=== PATIENT | female | born 1955 | race Caucasian/White ===

== ENCOUNTER 2018-03-26 11:04 | Emergency (ER) | payer MEDICAID ==
[2018-03-26 11:49] VITALS: BP 157/79
[2018-03-26] MEDS ORDERED: Alum Hydrox/Mag Hydrox/Simeth 15 ML, Lidocaine 2% 15 ML PO ONE ×2 (12:27)
--- NOTE | 2018-03-26 12:32 | EDM.PDOC ---
ED HPI GENERAL MEDICAL PROBLEM - General Chief Complaint: Abdominal Pain Stated Complaint: ABDOMINAL PAIN, DAY 5 Time Seen by Provider: 03/26/18 12:15 Source of Information: Reports: Patient, Old Records, RN History Limitations: Reports: No Limitations - History of Present Illness INITIAL COMMENTS - FREE TEXT/NARRATIVE: 62 yo female here with epigastric pain for about 5 days not getting worse. Went to the clinic today and was sent to the ER. Has early satiety with eating, no nausea or vomiting. Is s/p choly. Onset: Gradual Onset Date: 03/28/18 Duration: Day(s): (5), Constant Location: Reports: Abdomen (epigastric) Quality: Reports: Dull Severity: Moderate Improves with: Reports: None Worsens with: Reports: Eating Context: Reports: Other (unknown, has her gallbladder already out.) Associated Symptoms: Reports: Other (early satiety). 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: Musculoskeletal History: Reports: Arthritis, Back Pain, Chronic, Fibromyalgia Oncologic (Cancer) History: Reports: Malignant Melanoma Other Oncologic History: Removed on back 2016- - Past Surgical History GI Surgical History: Reports: Cholecystectomy, Colonoscopy, EGD Other Oncologic Surgeries/Procedures: - Social & Family History - Tobacco Use Smoking Status *Q: Never Smoker Second Hand Smoke Exposure: No - Caffeine Use Caffeine Use: Reports: Coffee - Recreational Drug Use Recreational Drug Use: No ED ROS GENERAL - Review of Systems Review Of Systems: See Below Constitutional: Reports: No Symptoms HEENT: Reports: No Symptoms Respiratory: Reports: No Symptoms Cardiovascular: Reports: No Symptoms Endocrine: Reports: No Symptoms GI/Abdominal: Reports: Abdominal Pain (epigastric) : Reports: No Symptoms Musculoskeletal: Reports: No Symptoms Skin: Reports: No Symptoms Neurological: Reports: No Symptoms ED EXAM, GI/ABD - Physical Exam Exam: See Below Exam Limited By: No Limitations General Appearance: Alert, WD/WN, No Apparent Distress Eyes: Bilateral: Normal Appearance, EOMI Ears: Normal External Exam, Normal Canal, Hearing Grossly Normal Nose: Normal Inspection, Normal Mucosa, No Blood Throat/Mouth: Normal Inspection, Normal Lips, Normal Oropharynx, Normal Voice, No Airway Compromise Head: Atraumatic, Normocephalic Neck: Normal Inspection Respiratory/Chest: No Respiratory Distress, Lungs Clear, Normal Breath Sounds, No Accessory Muscle Use GI/Abdominal Exam: Normal Bowel Sounds, Soft, No Distention, Tender (mild in epigastrium). No: Non-Tender Back Exam: Normal Inspection. No: CVA Tenderness (R), CVA Tenderness (L) Extremities: Normal Inspection, Normal Range of Motion, Non-Tender, No Pedal Edema Neurological: Alert, Oriented, CN II-XII Intact, Normal Cognition, No Motor/ Sensory Deficits Psychiatric: Normal Affect, Normal Mood Skin Exam: Warm, Dry, Intact, Normal Color, No Rash Lymphatic: No Adenopathy Course - Vital Signs Last Recorded V/S: Last Vital Signs Temp 36.0 C 03/26/18 12:06 Pulse 74 03/26/18 12:06 Resp 15 03/26/18 12:06 BP 157/79 H 03/26/18 12:06 Pulse Ox 100 03/26/18 12:06 - Orders/Labs/Meds Orders: Active Orders 24 hr Category Date Time Status H. PYLORI STOOL AG, EIA Routine Lab 03/26/18 13:47 Received Labs: Laboratory Tests 03/26/18 03/26/18 Range/Units 12:34 12:34 WBC 4.2 L (4.5-11.0) K/uL RBC 3.38 (3.30-5.50) M/uL Hgb 11.5 L (12.0-15.0) g/dL Hct 34.3 L (36.0-48.0) % MCV 102 H (80-98) fL MCH 34 H (27-31) pg MCHC 34 (32-36) % Plt Count 203 (150-400) K/uL Sodium 145 (140-148) mmol/L Potassium 3.4 L (3.6-5.2) mmol/L Chloride 106 (100-108) mmol/L Carbon Dioxide 30 (21-32) mmol/L Anion Gap 12.4 (5.0-14.0) mmol/L BUN 13 (7-18) mg/dL Creatinine 0.8 (0.6-1.0) mg/dL Est Cr Clr Drug Dosing 66.45 mL/min Estimated GFR (MDRD) > 60 (>60) Glucose 94 (74-106) mg/dL Calcium 9.0 (8.5-10.1) mg/dL Lipase 113 (73-393) U/L Meds: Medications Discontinued Medications Generic Name Dose Route Start Last Admin Trade Name Peewee PRN Reason Stop Dose Admin Acetaminophen 1,000 mg 03/26/18 13:14 03/26/18 13:33 Tylenol Extra Strength PO 03/26/18 13:15 1,000 mg ONETIME ONE Administration Al Hydroxide/Mg Hydroxide 15 0 ml 03/26/18 12:27 03/26/18 12:46 ml/ Lidocaine HCl 15 ml PO 03/26/18 12:28 15 ml ONETIME ONE Administration Famotidine 40 mg 03/26/18 13:14 03/26/18 13:32 Pepcid PO 03/26/18 13:15 40 mg ONETIME ONE Administration Departure - Departure Time of Disposition: 13:56 Disposition: Home, Self-Care 01 Condition: Good Clinical Impression: Epigastric abdominal pain - Discharge Information Referrals: Carmen Lacy MD [Primary Care Provider] - Forms: ED Department Discharge - My Orders Last 24 Hours: My Active Orders 03/26/18 13:47 H. PYLORI STOOL AG, EIA Routine - Assessment/Plan Last 24 Hours: My Active Orders 03/26/18 13:47 H. PYLORI STOOL AG, EIA Routine
[2018-03-26] MEDS ORDERED: Famotidine 20 MG Tab PO ONE (13:14)
[2018-03-26] MEDS ORDERED: Acetaminophen 500 MG Tab PO ONE (13:14)
== END 2018-03-26 14:44 | disposition home or self-care (01) ==
LOC: JP.ED 11:04
DX: R10.13 Epigastric pain (principal); Z88.0 Allergy status to penicillin; Z88.8 Allergy status to other drugs, medicaments and biological substances; Z79.899 Other long term (current) drug therapy
CPT/HCPCS: 36415; 80048; 83690; 85027; 87338; 99284; A9270

== ENCOUNTER 2019-01-02 11:50 | Outpatient (CLI) | payer MEDICAID ==
[~2019-01-02 11:50] MED LIST: Bupivacaine 0.5% 30 ML SDV ONE
[2019-01-02 12:19] VITALS: BP 128/82; PULSE 69
--- NOTE | 2019-01-02 20:44 | ANES ---
DATE OF SERVICE: 01/02/2019 PAIN CLINIC NOTE INDICATION: Jason is a 63-year-old female patient referred to us by Dr. Marquez for trigger point injections. Jason has had them several times in the past and is well aware of the risks and the benefits and wishes to proceed with trigger point injections today. Please refer to the doctor's notes for ICD-10 code and diagnosis. TECHNIQUE: The patient was then sat at the edge of the bed. She was wanting me to focus on her lower back lumbar region. Alcohol was used to clean that area. I was able to easily identify approximately 17 to 18 trigger points across her lower back lumbar region. 1 to 2 mL of 0.5% Sensorcaine were injected into those areas. More than 3 muscle groups were injected today. The patient tolerated the procedure without difficulty. Please refer to the nurse's notes for vital signs. After the appropriate amount of time, the patient will be discharged per ACU protocol. Seymour Trejo CRNA /[id number]
== END 2019-01-02 12:40 | disposition home or self-care (01) ==
LOC: JP.PAIN 11:50
PROVIDERS: ATTEND Family Medicine
DX: M79.10 Myalgia, unspecified site (principal)
CPT/HCPCS: 20553; J3490

== ENCOUNTER 2019-01-30 10:43 | Outpatient (CLI) | payer MEDICAID ==
[2019-01-30] MEDS ORDERED: methylPREDNISolone Acetate 40 MG/ML SDV ONE (11:04)
[2019-01-30] MEDS ORDERED: Bupivacaine 0.25% 10 ML SDV ONE (11:04)
[2019-01-30] MEDS ORDERED: Bupivacaine 0.5% 30 ML SDV ONE (11:04)
[2019-01-30 11:27] VITALS: BP 136/77; PULSE 68
--- NOTE | 2019-01-30 12:01 | ANES ---
DATE OF SERVICE: 01/30/2019 INDICATION: Jason is a 63-year-old female patient referred to us by Dr. Marquez for epidural steroid injection and trigger point injections today. She has had both several times in the past, is well aware of the risks and the benefits of both procedures and wishes to proceed with the LU and trigger points today. Please refer to the doctor's notes for ICD-10 code and diagnosis. TECHNIQUE: The patient was then sat at the edge of the bed. Betadine prep x3 to the lumbar region was done. Sterile drape was placed. 1% lidocaine skin wheal and deep was done. A 17-gauge Tuohy needle was inserted at approximately the L5-S1 position. Loss of resistance was achieved. Negative paresthesia, negative heme, and negative CSF were noted. I then proceeded to give the patient 7 mL of sterile normal saline with 2 mL of 0.25% Sensorcaine and 1 mL of 40 mg Depo-Medrol. The Tuohy needle was then flushed and withdrawn. Sterile drape was taken down. Betadine was cleaned off her back and a Band-Aid was applied to the puncture site for hemostasis. The patient tolerated that procedure without difficulty. I then turned my attention to trigger points. She was wanting me to focus on her lower back lumbar region. Alcohol was used to clean that area. I was able to easily identify approximately 17 to 18 trigger points across her lower back lumbar region. 1 to 2 mL of 0.5% Sensorcaine was injected into those areas. More than 3 muscle groups were injected today. The patient tolerated that procedure also without difficulty. Please refer to the nurse's notes for vital signs. After appropriate amount of time, patient will be discharged per ACU protocol. Seymour Trejo CRNA /[id number]
== END 2019-01-30 11:28 | disposition home or self-care (01) ==
LOC: JP.PAIN 10:43
PROVIDERS: ATTEND Family Medicine
DX: M54.17 Radiculopathy, lumbosacral region (principal); M54.5 Low back pain; M53.2X7 Spinal instabilities, lumbosacral region; M12.9 Arthropathy, unspecified; M25.511 Pain in right shoulder; M25.512 Pain in left shoulder
CPT/HCPCS: 20553; 62322; J1030; J3490

== ENCOUNTER 2019-03-13 09:35 | Outpatient (CLI) | payer MEDICAID ==
[2019-03-13] MEDS ORDERED: Bupivacaine 0.5% 30 ML SDV ONE (09:46)
[2019-03-13 10:37] VITALS: BP 150/82; PULSE 74
--- NOTE | 2019-03-13 17:58 | ANES ---
DATE OF SERVICE: 03/13/2019 INDICATION: Jason is a 63-year-old female patient referred to us by Dr. Marquez for trigger point injections today. She was wanting me to focus on her lower back lumbar region. She has had them several times in the past, is well aware of the risks and benefits related to this procedure. She was having some more pain in her lower back than normal, kind of shooting down her leg, that she did say does get worse going up steps. I palpated her SI joints, which were tender. So, I did recommend her getting an order for SI joint injections to be done sometime here to see if that will help relieve some of the new-onset pain she had at the end of last week. Please refer to the doctor's notes for ICD-10 code and diagnosis. TECHNIQUE: The patient then was sat at the edge of the bed. Like I said previously, she was wanting me to focus on her lower back lumbar region. Alcohol was used to clean that area. I was able to easily identify approximately 18 to 19 trigger points across her lower back lumbar region. 1 to 2 mL of 0.5% Sensorcaine was injected into those areas. More than 3 muscle groups were injected today. The patient tolerated the procedure without difficulty. Please refer to the nurse's notes for vital signs. After the appropriate amount of time, the patient will be discharged per ACU protocol. Seymour Trejo CRNA /[id number]
== END 2019-03-13 10:39 | disposition home or self-care (01) ==
LOC: JP.PAIN 09:35
PROVIDERS: ATTEND Family Medicine
DX: M54.40 Lumbago with sciatica, unspecified side (principal); G89.29 Other chronic pain
CPT/HCPCS: 20553; J3490

== ENCOUNTER → 2020-07-08 | Day surgery (SDC) | payer MEDICAID ==
[~2020-07-08] MED LIST changes: +Lactated Ringers 1,000 ML IV SCH; +Midazolam 1 MG/ML 2 ML SDV ONE; +Nozin Nasal Sanitizer NASBOTH ONE; +Propofol 200 MG/20 ML SDV ONE; +ceFAZolin 2 GM in Premix Bag 1 BAG IV ONE; +fentaNYL 100 MCG/2 ML SDV ONE
[2020-07-08 11:21] VITALS: BP 115/76; PULSE 76
--- NOTE | 2020-07-15 14:37 | OR ---
DATE OF PROCEDURE: 07/08/2020 SURGEON: Caesar Castaneda MD PREOPERATIVE DIAGNOSIS: Impingement left shoulder, possible rotator cuff tear. POSTOPERATIVE DIAGNOSES: 1. Impingement, left shoulder. 2. Severe partial-thickness tear rotator cuff. 3. Osteoarthritis with articular cartilage defect, humeral head. PROCEDURE: 1. Arthroscopy left shoulder with chondroplasty of humeral head. 2. Subacromial decompression with acromioplasty. 3. Rotator cuff repair. ANESTHESIA: Interscalene block with sedation. INDICATIONS: Jason is a 64-year-old female with a history of chronic left shoulder pain. She has gone through multiple courses of anti-inflammatories, physical therapy, and injections with temporary improvement. Examination and imaging are consistent with impingement and at least a severe partial-thickness tear and possible small full-thickness tear of the rotator cuff. She now presents for arthroscopy of the shoulder with decompression and repair of rotator cuff as necessary. Risks, benefits, potential complications of the procedure were discussed. DESCRIPTION OF PROCEDURE: After adequate anesthesia was obtained, the patient was placed in a lateral decubitus position and secured with a byrne bag positioner. Left shoulder and arm were prepped and draped in a sterile fashion and 10 pounds of traction was placed in a shoulder traction unit. Posterior portal was established and the glenohumeral joint was inspected. This revealed intact articular cartilage on the glenoid. The humeral head, however, had grade 3 and 4 changes in the central portion with significant fissuring and loose articular fragments. Some very minor degenerative changes were noted on the labrum. Biceps tendon was intact as was the subscapularis. Undersurface of the rotator cuff showed some thinning, but no full-thickness tear. Anterior portal was established and the shaver was used to perform a chondroplasty of the humeral head, moving back and forth between the anterior and posterior portals with a shaver. The scope was then withdrawn and placed into the subacromial space. Moderate amount of chronic bursitis was present. Using a combination of the shaver and the Serfas ablation radiofrequency wand, soft tissues were cleared for visualization. This revealed significant fraying of the bursal side of the rotator cuff, particularly the supraspinatus. Coracoacromial ligament was taken off the anterior edge of the acromion with the ablation wand. Anterolateral portion of the acromion was delineated and a fitz was then introduced, performing an acromioplasty, bevelling the acromion medially and posteriorly, removing approximately 4.5 mm. Rotator cuff was further inspected and this revealed significant fraying without full-thickness tear, but the area of damaged tendon consisted of easily 75% of the thickness of the tendon. Frayed portion was debrided using a combination of the shaver and the wand. An 11 blade was placed through the lateral portal and used to complete the tear. Shaver and fitz were then used to lightly decorticate the superior surface of the tuberosity. A single Mitek Healix anchor was then placed into the footprint. Both limbs of the anchor sutures were brought up through the tendon in a mattress fashion incorporating the damaged portion of the tendon. These were then tied arthroscopically and the repair was evaluated. This showed good repair with approximation to the tuberosity and no lateral row anchor was utilized. Level of the acromioplasty was evaluated and found to be adequate. No other abnormalities were identified. Scope was withdrawn. Port sites were closed in a standard fashion. Sterile dressing was applied. The patient tolerated the procedure well. There were no complications. She was taken from the operating room in stable condition. Caesar Castaneda MD /[id number]
== END ==
LOC: JP.SDS 05:15
PROVIDERS: ATTEND Specialist
DX: M75.112 Incomplete rotator cuff tear or rupture of left shoulder, not specified as traumatic (principal); M19.012 Primary osteoarthritis, left shoulder; M75.42 Impingement syndrome of left shoulder; E78.5 Hyperlipidemia, unspecified; Z88.0 Allergy status to penicillin; Z88.8 Allergy status to other drugs, medicaments and biological substances; Z79.899 Other long term (current) drug therapy; Z87.891 Personal history of nicotine dependence
CPT/HCPCS: 29826; 29827; A9270; C1713; J0690; J2250; J2704; J3010; J3490; J7120

== ENCOUNTER 2020-09-07 07:45 | Day surgery (SDC) | payer MEDICAID ==
[~2020-09-07 07:45] MED LIST changes: -Bupivacaine 0.5% 30 ML SDV ONE; +Bupivacaine 0.5%/EPINEPHrine 1:200,000 50 ML MDV ONE; -Lactated Ringers 1,000 ML IV SCH; -Midazolam 1 MG/ML 2 ML SDV ONE; -Nozin Nasal Sanitizer NASBOTH ONE; -Propofol 200 MG/20 ML SDV ONE; -ceFAZolin 2 GM in Premix Bag 1 BAG IV ONE; -fentaNYL 100 MCG/2 ML SDV ONE; +methylPREDNISolone Acetate 80 MG/ML SDV ONE
[2020-09-07] MEDS ORDERED: Propofol 200 MG/20 ML SDV ONE (08:29)
[2020-09-07] MEDS ORDERED: Lactated Ringers 1,000 ML IV SCH (08:30)
[2020-09-07] MEDS ORDERED: Ketorolac 60 MG/2 ML SDV ONE (10:22)
[2020-09-07] MEDS ORDERED: Morphine 2 MG/ML SYRINGE IVPUSH ONE (10:43)
[2020-09-07] MEDS ORDERED: Acetaminophen/oxyCODONE 325-5 MG Tab PO ONE (10:46)
[2020-09-07 11:15] VITALS: BP 119/73; PULSE 77
--- NOTE | 2020-09-07 15:14 | OR ---
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 PROCEDURE: Manipulation under anesthesia, left shoulder, and subacromial injection. ANESTHESIA: Conscious sedation. INDICATIONS: Jason is a 64-year-old female with a history of partial thickness rotator cuff tear, who underwent repair approximately 2 months ago. She has been unable to regain range of motion despite fairly aggressive physical therapy. She now presents for manipulation under anesthesia. Risks, benefits, and potential complications were discussed. DESCRIPTION OF PROCEDURE: After adequate anesthesia was obtained, patient was placed supine on a gurney with appropriate monitoring. The arm was taken up into flexion with resistance met at approximately 95 degrees. Gentle continued pressure was applied with a palpable release of adhesions and the arm could then be further flexed to 170 degrees. This was then brought out into abduction and back down into neutral position. With the elbow in neutral position, the arm was externally rotated with resistance met at just beyond 20 to 25 degrees. Further release of adhesions allowed external rotation to approximately 80 degrees. Arm was then abducted and internally rotated with further release of adhesions on internal rotation. Arm was then brought back into neutral position. Arm was prepped with alcohol and the subacromial space was injected with 20 mL of Marcaine with epinephrine along with 80 mg of Depo-Medrol. The arm was again taken through a gentle range of motion following this. The patient tolerated the procedure very well. There were no complications. Discharged in a stable condition. Caesar Castaneda MD /[id number]
== END 2020-09-07 11:20 | disposition home or self-care (01) ==
LOC: JP.SDS 07:45
PROVIDERS: ATTEND Specialist
DX: T84.82XA Fibrosis due to internal orthopedic prosthetic devices, implants and grafts, initial encounter (principal); Z88.0 Allergy status to penicillin
CPT/HCPCS: 23700; A9270; J1040; J1885; J2270; J2704; J3490; J7120

== ENCOUNTER 2021-04-03 01:26 | Observation (INO) | payer MEDICAID ==
--- NOTE | 2021-04-03 01:46 | EDM.PDOC ---
ED HPI GENERAL MEDICAL PROBLEM - General Chief Complaint: Neuro Symptoms/Deficits Stated Complaint: ALOC Time Seen by Provider: 04/03/21 01:28 Source of Information: Reports: EMS History Limitations: Reports: Altered Mental Status - History of Present Illness INITIAL COMMENTS - FREE TEXT/NARRATIVE: Priti is a 65-year-old female presenting to the ED via [facility] for evaluation of possible seizure. The patient was in her usual state of health when she started started to grunt with rapid eye movement under the eyelids and unresponsiveness. This woke her who tried to awaken her without success and then called EMS. Upon EMSs arrival she was having what appeared to be a petit mall seizure. When she did start to regain consciousness, she was completely amnestic to the events of the day. The patient does not have any history for seizure disorder. She has not had any trauma to the head. She is not on any anticoagulation therapy. She did recently have bilateral hip steroid injections for osteoarthritis. 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 bilat hip pain Neurological History: Reports: None Psychiatric History: Reports: None Endocrine/Metabolic History: Reports: None Hematologic History: Reports: Anemia Immunologic History: Reports: None Oncologic (Cancer) History: Reports: Malignant Melanoma Other Oncologic History: Removed on back 2016- Dermatologic History: Reports: Other (See Below) Other Dermatologic History: occasional rash - sensitive skin - Infectious Disease History Infectious Disease History: Reports: Chicken Pox, Measles, Mumps, Shingles Other Infectious Disease History: Lymes disease - Past Surgical History HEENT Surgical History: Reports: Other (See Below) Other HEENT Surgeries/Procedures: wisdom teeth removed GI Surgical History: Reports: Cholecystectomy, Colonoscopy, EGD Female Surgical History: Reports: Breast Biopsy Musculoskeletal Surgical History: Reports: Shoulder Surgery Other Musculoskeletal Surgeries/Procedures:: left shoulder scope 07/08/20. let shoulder manipulation 09/07/20 Other Oncologic Surgeries/Procedures: - Social & Family History - Tobacco Use Tobacco Use Status *Q: Never Tobacco User - Caffeine Use Caffeine Use: Reports: Coffee - Recreational Drug Use Recreational Drug Use: No ED ROS GENERAL - Review of Systems Review Of Systems: See Below Constitutional: Reports: No Symptoms HEENT: Reports: No Symptoms Respiratory: Reports: No Symptoms Cardiovascular: Reports: No Symptoms Endocrine: Reports: Fatigue GI/Abdominal: Reports: No Symptoms : Reports: No Symptoms Musculoskeletal: Reports: Joint Pain (Chronic osteoarthritis both hips, adhesive capsulitis) Skin: Reports: No Symptoms Neurological: Reports: Seizure, Other (Amnesia to the events of today) Psychiatric: Reports: No Symptoms Hematologic/Lymphatic: Reports: No Symptoms Immunologic: Reports: No Symptoms - Physical Exam Exam: See Below Exam Limited By: Other (Patient is amnestic to the events of today but is starting to recall her surroundings and is oriented to person, place and time.) General Appearance: Alert, No Apparent Distress, Anxious Eye Exam: Bilateral Eye: EOMI, PERRL Throat/Mouth: Normal Inspection, Normal Lips, Normal Oropharynx, Normal Voice, No Airway Compromise Head Exam: Atraumatic, Normocephalic Neck: Normal Inspection, Supple, Non-Tender, Full Range of Motion Respiratory/Chest: No Respiratory Distress, Lungs Clear, Normal Breath Sounds Cardiovascular: Normal Peripheral Pulses, Regular Rate, Rhythm, No Murmur GI/Abdominal: Normal Bowel Sounds, Soft, Non-Tender Neuro Exam (Abbreviated): Alert, Oriented (Oriented to person, place, and time), CN II-XII Intact, Normal Cognition, No Motor/Sensory Deficits, Confused (Patient is still having some degree of confusion), Slow to Respond Back Exam: Normal Inspection Extremities: Normal Inspection, Normal Capillary Refill Psychiatric: Normal Affect, Anxious Skin Exam: Warm, Dry, Intact, Normal Color Course - Vital Signs Last Recorded V/S: Last Vital Signs Temp 36.5 C 04/03/21 01:41 Pulse 91 04/03/21 01:41 Resp 20 04/03/21 01:41 BP 151/76 H 04/03/21 01:41 Pulse Ox 96 04/03/21 01:41 - Orders/Labs/Meds Orders: Active Orders 24 hr Category Date Time Status Head wo Cont [CT] Stat Exams 04/03/21 01:29 Taken BABESIA MICROTI ANTIBODY PANEL Urgent Lab 04/03/21 01:51 Received CREATININE, URINE Stat Lab 04/03/21 03:00 Ordered HUMAN GRANULOCYTIC ERNESTO-HGE Urgent Lab 04/03/21 01:51 Received SODIUM,URINE RANDOM [URCHEM] Stat Lab 04/03/21 03:00 Ordered Labs: Laboratory Tests 04/03/21 04/03/21 04/03/21 Range/Units 01:36 01:36 01:36 WBC 10.0 (4.5-11.0) K/uL RBC 3.69 (3.30-5.50) M/uL Hgb 13.4 (12.0-15.0) g/dL Hct 37.5 (36.0-48.0) % MCV 102 H (80-98) fL MCH 36 H (27-31) pg MCHC 36 (32-36) % Plt Count 288 (150-400) K/uL Neut % (Auto) 78.2 H (36-66) % Lymph % (Auto) 14.7 L (24-44) % Bell % (Auto) 7.0 H (2-6) % Eos % (Auto) 0.0 L (2-4) % Baso % (Auto) 0.1 (0-1) % PT 10.1 (9.5-12.0) sec INR 0.93 (0.80-1.20) APTT 22.9 L (27.0-36.0) sec Sodium (140-148) mmol/L Potassium (3.6-5.2) mmol/L Chloride (100-108) mmol/L Carbon Dioxide (21-32) mmol/L Anion Gap (5.0-14.0) mmol/L BUN (7-18) mg/dL Creatinine (0.6-1.0) mg/dL Est Cr Clr Drug Dosing mL/min Estimated GFR (MDRD) (>60) Glucose (74-106) mg/dL Lactic Acid (0.4-2.0) mmol/L Calcium (8.5-10.1) mg/dL Magnesium 1.9 (1.8-2.4) mg/dL Total Bilirubin (0.2-1.0) mg/dL AST (15-37) U/L ALT (12-78) U/L Alkaline Phosphatase (46-116) U/L Total Protein (6.4-8.2) g/dL Albumin (3.4-5.0) g/dL Globulin (2.3-3.5) g/dL Albumin/Globulin Ratio (1.2-2.2) Urine Color (YELLOW) Urine Appearance (CLEAR) Urine pH (5.0-8.0) Ur Specific Lugoff (1.008-1.030) Urine Protein (NEGATIVE) mg/dL Urine Glucose (UA) (NEGATIVE) mg/dL Urine Ketones (NEGATIVE) mg/dL Urine Occult Blood (NEGATIVE) Urine Nitrite (NEGATIVE) Urine Bilirubin (NEGATIVE) Urine Urobilinogen (0.2-1.0) EU/dL Ur Leukocyte Esterase (NEGATIVE) Urine RBC (0-5) Urine WBC (0-5) Ur Epithelial Cells Amorphous Sediment Urine Bacteria Urine Mucus Urine Opiates Screen (NEGATIVE) Ur Oxycodone Screen (NEGATIVE) Urine Methadone Screen (NEGATIVE) Ur Propoxyphene Screen (NEGATIVE) Ur Barbiturates Screen (NEGATIVE) Ur Tricyclics Screen (NEGATIVE) Ur Phencyclidine Scrn (NEGATIVE) Ur Amphetamine Screen (NEGATIVE) U Methamphetamines Scrn (NEGATIVE) Urine MDMA Screen (NEGATIVE) U Benzodiazepines Scrn (NEGATIVE) U Cocaine Metab Screen (NEGATIVE) U Marijuana (THC) Screen (NEGATIVE) Ethyl Alcohol mg/dL Lyme Disease IgG Ab (Negative) Lyme Disease IgM Ab (Negative) 04/03/21 04/03/21 04/03/21 Range/Units 01:36 01:36 01:36 WBC (4.5-11.0) K/uL RBC (3.30-5.50) M/uL Hgb (12.0-15.0) g/dL Hct (36.0-48.0) % MCV (80-98) fL MCH (27-31) pg MCHC (32-36) % Plt Count (150-400) K/uL Neut % (Auto) (36-66) % Lymph % (Auto) (24-44) % Bell % (Auto) (2-6) % Eos % (Auto) (2-4) % Baso % (Auto) (0-1) % PT (9.5-12.0) sec INR (0.80-1.20) APTT (27.0-36.0) sec Sodium 129 L (140-148) mmol/L Potassium 4.2 (3.6-5.2) mmol/L Chloride 93 L (100-108) mmol/L Carbon Dioxide 24 (21-32) mmol/L Anion Gap 16.2 H (5.0-14.0) mmol/L BUN 18 (7-18) mg/dL Creatinine 0.8 (0.6-1.0) mg/dL Est Cr Clr Drug Dosing 61.35 mL/min Estimated GFR (MDRD) > 60 (>60) Glucose 132 H (74-106) mg/dL Lactic Acid 2.2 H (0.4-2.0) mmol/L Calcium 8.9 (8.5-10.1) mg/dL Magnesium (1.8-2.4) mg/dL Total Bilirubin 0.6 (0.2-1.0) mg/dL AST 19 (15-37) U/L ALT 26 (12-78) U/L Alkaline Phosphatase 55 (46-116) U/L Total Protein 6.8 (6.4-8.2) g/dL Albumin 3.9 (3.4-5.0) g/dL Globulin 2.9 (2.3-3.5) g/dL Albumin/Globulin Ratio 1.3 (1.2-2.2) Urine Color (YELLOW) Urine Appearance (CLEAR) Urine pH (5.0-8.0) Ur Specific Lug[place] (1.008-1.030) Urine Protein (NEGATIVE) mg/dL Urine Glucose (UA) (NEGATIVE) mg/dL Urine Ketones (NEGATIVE) mg/dL Urine Occult Blood (NEGATIVE) Urine Nitrite (NEGATIVE) Urine Bilirubin (NEGATIVE) Urine Urobilinogen (0.2-1.0) EU/dL Ur Leukocyte Esterase (NEGATIVE) Urine RBC (0-5) Urine WBC (0-5) Ur Epithelial Cells Amorphous Sediment Urine Bacteria Urine Mucus Urine Opiates Screen (NEGATIVE) Ur Oxycodone Screen (NEGATIVE) Urine Methadone Screen (NEGATIVE) Ur Propoxyphene Screen (NEGATIVE) Ur Barbiturates Screen (NEGATIVE) Ur Tricyclics Screen (NEGATIVE) Ur Phencyclidine Scrn (NEGATIVE) Ur Amphetamine Screen (NEGATIVE) U Methamphetamines Scrn (NEGATIVE) Urine MDMA Screen (NEGATIVE) U Benzodiazepines Scrn (NEGATIVE) U Cocaine Metab Screen (NEGATIVE) U Marijuana (THC) Screen (NEGATIVE) Ethyl Alcohol < 3 mg/dL Lyme Disease IgG Ab (Negative) Lyme Disease IgM Ab (Negative) 04/03/21 04/03/21 04/03/21 Range/Units 01:51 02:30 02:30 WBC (4.5-11.0) K/uL RBC (3.30-5.50) M/uL Hgb (12.0-15.0) g/dL Hct (36.0-48.0) % MCV (80-98) fL MCH (27-31) pg MCHC (32-36) % Plt Count (150-400) K/uL Neut % (Auto) (36-66) % Lymph % (Auto) (24-44) % Bell % (Auto) (2-6) % Eos % (Auto) (2-4) % Baso % (Auto) (0-1) % PT (9.5-12.0) sec INR (0.80-1.20) APTT (27.0-36.0) sec Sodium (140-148) mmol/L Potassium (3.6-5.2) mmol/L Chloride (100-108) mmol/L Carbon Dioxide (21-32) mmol/L Anion Gap (5.0-14.0) mmol/L BUN (7-18) mg/dL Creatinine (0.6-1.0) mg/dL Est Cr Clr Drug Dosing mL/min Estimated GFR (MDRD) (>60) Glucose (74-106) mg/dL Lactic Acid (0.4-2.0) mmol/L Calcium (8.5-10.1) mg/dL Magnesium (1.8-2.4) mg/dL Total Bilirubin (0.2-1.0) mg/dL AST (15-37) U/L ALT (12-78) U/L Alkaline Phosphatase (46-116) U/L Total Protein (6.4-8.2) g/dL Albumin (3.4-5.0) g/dL Globulin (2.3-3.5) g/dL Albumin/Globulin Ratio (1.2-2.2) Urine Color Yellow (YELLOW) Urine Appearance Clear (CLEAR) Urine pH 6.5 (5.0-8.0) Ur Specific Lugoff 1.015 (1.008-1.030) Urine Protein Negative (NEGATIVE) mg/dL Urine Glucose (UA) Negative (NEGATIVE) mg/dL Urine Ketones Trace H (NEGATIVE) mg/dL Urine Occult Blood Trace-lysed H (NEGATIVE) Urine Nitrite Negative (NEGATIVE) Urine Bilirubin Negative (NEGATIVE) Urine Urobilinogen 0.2 (0.2-1.0) EU/dL Ur Leukocyte Esterase Negative (NEGATIVE) Urine RBC 0-5 (0-5) Urine WBC 0-5 (0-5) Ur Epithelial Cells Few Amorphous Sediment Not seen Urine Bacteria Few Urine Mucus Not seen Urine Opiates Screen Negative (NEGATIVE) Ur Oxycodone Screen Negative (NEGATIVE) Urine Methadone Screen Negative (NEGATIVE) Ur Propoxyphene Screen Negative (NEGATIVE) Ur Barbiturates Screen Negative (NEGATIVE) Ur Tricyclics Screen Negative (NEGATIVE) Ur Phencyclidine Scrn Negative (NEGATIVE) Ur Amphetamine Screen Negative (NEGATIVE) U Methamphetamines Scrn Negative (NEGATIVE) Urine MDMA Screen Negative (NEGATIVE) U Benzodiazepines Scrn Negative (NEGATIVE) U Cocaine Metab Screen Negative (NEGATIVE) U Marijuana (THC) Screen Negative (NEGATIVE) Ethyl Alcohol mg/dL Lyme Disease IgG Ab Negative (Negative) Lyme Disease IgM Ab Negative (Negative) - Radiology Interpretation Free Text/Narrative:: I reviewed the CT of the head without contrast. There is no evidence for any intracranial hemorrhage, mass, or midline shift. There is no cranial abnormalities. This was confirmed by the final report from [facility]. - Re-Assessments/Exams Free Text/Narrative Re-Assessment/Exam: 04/03/21 02:23 reviewed the patient's labs showing a leukocyte count of 10.0, hemoglobin of 13.4 with a hematocrit of 37.5, and a platelet count of 288,000. Her apprehensive metabolic panel demonstrates a sodium of 129, potassium 4.2, chloride of 93 with a bicarbonate of 24, BUN of 18 with a creatinine of 0.8 and a glucose of 132. Her lactate is elevated at 2.2. Her calcium is normal at 8.9 and her magnesium is normal at 1.9. Patient's coagulation studies are normal with a PTT of 22.9 and a PT of 10.1 with an INR of 0.93. Ethanol level is less than 3. The patient is 2 days out from bilateral hip cortisone injections and with a low sodium I wonder if she is not having bit of SIADH secondary to the cortisone injections. The head CT was unremarkable for any acute abnormalities including intracranial hemorrhage, mass, or midline shift. There was no cranial abnormalities. 04/03/21 03:02 we will initiate sodium replacement with normal saline 3% with 100 mL bolus followed by a recheck of the sodium in an hour. We will arrange for admission of the patient to the hospital. I discussed the case with Dr. Alberto Medrano is a feel this patient is sufficient to go on the floor versus the ICU. Departure - Departure Time of Disposition: 03:10 Disposition: Admitted As Inpatient 67 Clinical Impression: Petit mal seizure status, Hyponatremia, Elevated lactic acid level, SIADH (syndrome of inappropriate ADH production) - Discharge Information Referrals: PCP,None [Primary Care Provider] - Forms: ED Department Discharge Sepsis Event Note (ED) - Focused Exam Vital Signs: Vital Signs Temp Pulse Resp BP Pulse Ox 04/03/21 01:41 36.5 C 91 20 151/76 H 96 04/03/21 01:29 36.5 C 91 20 151/76 H 96 - My Orders Last 24 Hours: My Active Orders 04/03/21 01:29 Head wo Cont [CT] Stat 04/03/21 01:51 BABESIA MICROTI ANTIBODY PANEL Urgent HUMAN GRANULOCYTIC ERNESTO-HGE Urgent 04/03/21 03:00 CREATININE, URINE Stat SODIUM,URINE RANDOM [URCHEM] Stat - Assessment/Plan Last 24 Hours: My Active Orders 04/03/21 01:29 Head wo Cont [CT] Stat 04/03/21 01:51 BABESIA MICROTI ANTIBODY PANEL Urgent HUMAN GRANULOCYTIC ERNESTO-HGE Urgent 04/03/21 03:00 CREATININE, URINE Stat SODIUM,URINE RANDOM [URCHEM] Stat
--- NOTE | 2021-04-03 03:12 | CRLCT ---
For Patients: As a result of the Century Cures Act, medical imaging exams and procedure reports are released immediately into your electronic medical record. You may view this report before your referring provider. If you have questions, please contact your health care provider. INDICATION: Seizure. COMPARISON: None available. TECHNIQUE: Routine noncontrast axial CT images of the head. Sagittal and coronal reformatted series were also generated and reviewed. - Total exam DLP 755 mGy-cm. FINDINGS: The franco/white matter differentiation is preserved throughout. There is no evidence of intracranial mass or hemorrhage. No herniation or hydrocephalus. No abnormal extra-axial fluid collection. The visualized portions of the orbits are unremarkable. The visualized pneumatized portions of the skull are clear. The skull and scalp are intact. IMPRESSION: No acute intracranial findings. Dictated by Tigre Delatorre MD @ 04/03/2021 3:11:06 AM Please note that all CT scans at this facility use dose modulation, iterative reconstruction, and/or weight-based dosing when appropriate to reduce radiation dose to as low as reasonably achievable. Dictated by: Tigre Delatorre MD @ 04/03/2021 03:11:44 (Electronically Signed)
[2021-04-03] MEDS: Sodium Chloride 3% 100 ML IV SCH ×3 (03:17→09:24)
--- NOTE | 2021-04-03 07:12 | HP ---
CHIEF COMPLAINT: Seizure. HISTORY OF PRESENT ILLNESS: A 65-year-old who was in bed, and all of a sudden, her just noticed her thrashing around and was not really responsive. Called their son who is staying with them. He came in and she was still shaking. Called 911. By the time paramedics arrived, she was confused but arousable, did not remember anything that happened. She was brought into the emergency room for further evaluation. She had no further seizure activity here, was evaluated by emergency room physician with an otherwise normal exam other than continued confusion. Workup revealed sodium of 129. It sounds like she had bilateral hip injections, orthopedic surgery just a day ago, and was felt to have a SIADH pattern after injections, which she has had before and not had any trouble. She denies a history of seizures in the past. PAST MEDICAL HISTORY: She has history of back pain, arthritic pain in her hip. She has had trigger point injections in her back and recent hip injections, but really otherwise no other significant medical problems. No history of seizures in the past. She had melanoma removed 2 years ago, but did not require any chemotherapy or other additive treatment, was just the removal. MEDICATIONS: She is on no medications. ALLERGIES: PENICILLIN, POLYMYXIN B. SOCIAL HISTORY: She is nonsmoker. No alcohol use. . FAMILY HISTORY: She is adopted, does not know her family history. REVIEW OF SYSTEMS: Denies headaches, vision changes, upper respiratory symptoms. No chest pain, shortness of breath, cough, nausea, vomiting, diarrhea, or constipation. No urinary problems reported. No swelling in her legs. No skin problems reported. No neurologic complaints other than above. OBJECTIVE: VITAL SIGNS: Temperature 36.5, pulse 91, blood pressure initially 151/76, now 128/71, respirations 20 to 17, and O2 saturation 96% on room air. HEENT: Ears clear. Pharynx is clear. Eyes are grossly normal. NECK: Supple. No adenopathy, thyromegaly, JVD, carotid bruits. LUNGS: Clear. HEART: Regular without murmurs. ABDOMEN: Soft, nontender. No mass can be palpated. EXTREMITIES: No edema. SKIN: Negative. NEUROLOGIC: Cranial nerves II through XII appears grossly intact. Had intact strength and sensation to her upper and lower extremities. She still was confused as far as remembering names. LABORATORY DATA: White count of 10.0, hemoglobin 13.4, platelets 288,000. PT 10.1 with an INR of 0.93. Sodium was 129, potassium 4.2, chloride 93, BUN was 18, creatinine 0.8, glucose 132, lactic acid elevated at 2.2. Liver functions were normal. Urinalysis, trace ketones, otherwise unremarkable. Urine sodium 34. Urine potassium 14.9. Drug screen was negative. negative. CT of her head was negative. ASSESSMENT: 1. Seizure, thought to be secondary to hyponatremia. The patient given a bolus of 100 mL of 3% saline in the emergency room. We will check her sodium after that and see if we need to repeat. Also watch her level of cognition and memory to presiding judge her response. 2. Osteoarthritis of her hips with injection a day ago in each hip. 3. Chronic back pain. 4. History of melanoma. Alberto Medrano MD /[id number]
[2021-04-03 08:25] VITALS: BP 121/74; PULSE 80
--- NOTE | 2021-04-03 10:46 | PCM.DCSUM1 ---
Discharge Summary - Hospital Course Brief History: Ms. Rosas is a 65-year-old woman who was admitted through the emergency department after experiencing a seizure at home. - Discharge Data Discharge Date: 04/03/21 Discharge Disposition: Home, Self-Care 01 Condition: Fair - Referral to Home Health Primary Care Physician: PCP None - Discharge Diagnosis/Problem(s) (1) Seizure SNOMED Code(s): 49958292 ICD Code: R56.9 - UNSPECIFIED CONVULSIONS Status: Acute Current Visit: Yes - Patient Summary/Data Hospital Course: Ms. Rosas is a 65-year-old woman who was admitted through the emergency department after experiencing a seizure at home. She had felt well throughout the day, after going to bed noted that she was unresponsive and experiencing tonic-clonic movements of her extremities. Her son who lives with them also witnessed this apparent seizure activity. EMS was activated and she was brought into the emergency department for further evaluation. Following the seizure she was somewhat lethargic and confused this slowly improved while she was in the emergency department. She has no prior history of neurologic disease or seizures. Denies recent head injuries or other abnormalities. CT scan of the head was obtained without contrast and showed no obvious abnormalities. Laboratory studies were remarkable for mild hyponatremia but no other significant abnormalities. She has been stable since admission with no further seizure activity or neurologic abnormalities. Given that this is her first seizure will hold on antiepileptic therapy pending further evaluation. She will be scheduled for MRI of the brain with and without contrast on Monday, April 05. Follow-up appointment will be scheduled with her primary care provider within 1 week. Consider neurology consult on an outpatient basis concerning apparent seizure activity. Activity will be as tolerated although she is instructed to not drive until she has been seizure-free for a period of 3 months. She will resume her usual diet. If they note any further seizure activity or abnormalities they will present immediately to the emergency department. - Patient Instructions Diet: Usual Diet as Tolerated Activity: As Tolerated Driving: Do Not Drive (No driving until seizure-free for 3 months) Other/Special Instructions: Please schedule follow-up appointment with primary care provider within 1 week. Please schedule MRI of the brain with and without contrast for Monday, April 05. Consider outpatient consult with neurology concerning seizure. - Discharge Plan *PRESCRIPTION DRUG MONITORING PROGRAM REVIEWED*: Not Applicable *COPY OF PRESCRIPTION DRUG MONITORING REPORT IN PATIENT ED: Not Applicable Home Medications: Home Meds NK [No Known Home Meds] 10/20/20 [History] Referrals: Zamzam Donnelly MD [Ordering Only Provider] - - Discharge Summary/Plan Comment DC Time >30 min.: No - Patient Data Vitals - Most Recent: Last Vital Signs Temp 96.8 F L 04/03/21 08:23 Pulse 80 04/03/21 08:23 Resp 16 04/03/21 08:23 BP 121/74 04/03/21 08:23 Pulse Ox 99 04/03/21 08:23 Weight - Most Recent: 128 lb 8.472 oz I&O - Last 24 hours: Intake & Output 04/02/21 04/03/21 04/03/21 22:59 06:59 14:59 Intake Total 480 Output Total 400 1000 Balance -400 -520 Lab Results - Last 24 hrs: Laboratory Results - last 24 hr 04/03/21 04/03/21 04/03/21 Range/Units 01:36 01:36 01:36 WBC 10.0 (4.5-11.0) K/uL RBC 3.69 (3.30-5.50) M/uL Hgb 13.4 (12.0-15.0) g/dL Hct 37.5 (36.0-48.0) % MCV 102 H (80-98) fL MCH 36 H (27-31) pg MCHC 36 (32-36) % Plt Count 288 (150-400) K/uL Neut % (Auto) 78.2 H (36-66) % Lymph % (Auto) 14.7 L (24-44) % Bethel % (Auto) 7.0 H (2-6) % Eos % (Auto) 0.0 L (2-4) % Baso % (Auto) 0.1 (0-1) % PT 10.1 (9.5-12.0) sec INR 0.93 (0.80-1.20) APTT 22.9 L (27.0-36.0) sec Sodium (140-148) mmol/L Potassium (3.6-5.2) mmol/L Chloride (100-108) mmol/L Carbon Dioxide (21-32) mmol/L Anion Gap (5.0-14.0) mmol/L BUN (7-18) mg/dL Creatinine (0.6-1.0) mg/dL Est Cr Clr Drug Dosing mL/min Estimated GFR (MDRD) (>60) Glucose (74-106) mg/dL Lactic Acid (0.4-2.0) mmol/L Calcium (8.5-10.1) mg/dL Magnesium 1.9 (1.8-2.4) mg/dL Total Bilirubin (0.2-1.0) mg/dL AST (15-37) U/L ALT (12-78) U/L Alkaline Phosphatase (46-116) U/L Total Protein (6.4-8.2) g/dL Albumin (3.4-5.0) g/dL Globulin (2.3-3.5) g/dL Albumin/Globulin Ratio (1.2-2.2) Urine Color (YELLOW) Urine Appearance (CLEAR) Urine pH (5.0-8.0) Ur Specific Webster (1.008-1.030) Urine Protein (NEGATIVE) mg/dL Urine Glucose (UA) (NEGATIVE) mg/dL Urine Ketones (NEGATIVE) mg/dL Urine Occult Blood (NEGATIVE) Urine Nitrite (NEGATIVE) Urine Bilirubin (NEGATIVE) Urine Urobilinogen (0.2-1.0) EU/dL Ur Leukocyte Esterase (NEGATIVE) Urine RBC (0-5) Urine WBC (0-5) Ur Epithelial Cells Amorphous Sediment Urine Bacteria Urine Mucus Ur Random Sodium (20-110) mmol/L Ur Random Potassium (12-62) mmol/L Urine Opiates Screen (NEGATIVE) Ur Oxycodone Screen (NEGATIVE) Urine Methadone Screen (NEGATIVE) Ur Propoxyphene Screen (NEGATIVE) Ur Barbiturates Screen (NEGATIVE) Ur Tricyclics Screen (NEGATIVE) Ur Phencyclidine Scrn (NEGATIVE) Ur Amphetamine Screen (NEGATIVE) U Methamphetamines Scrn (NEGATIVE) Urine MDMA Screen (NEGATIVE) U Benzodiazepines Scrn (NEGATIVE) U Cocaine Metab Screen (NEGATIVE) U Marijuana (THC) Screen (NEGATIVE) Ethyl Alcohol mg/dL Lyme Disease IgG Ab (Negative) Lyme Disease IgM Ab (Negative) 04/03/21 04/03/21 04/03/21 Range/Units 01:36 01:36 01:36 WBC (4.5-11.0) K/uL RBC (3.30-5.50) M/uL Hgb (12.0-15.0) g/dL Hct (36.0-48.0) % MCV (80-98) fL MCH (27-31) pg MCHC (32-36) % Plt Count (150-400) K/uL Neut % (Auto) (36-66) % Lymph % (Auto) (24-44) % Bethel % (Auto) (2-6) % Eos % (Auto) (2-4) % Baso % (Auto) (0-1) % PT (9.5-12.0) sec INR (0.80-1.20) APTT (27.0-36.0) sec Sodium 129 L (140-148) mmol/L Potassium 4.2 (3.6-5.2) mmol/L Chloride 93 L (100-108) mmol/L Carbon Dioxide 24 (21-32) mmol/L Anion Gap 16.2 H (5.0-14.0) mmol/L BUN 18 (7-18) mg/dL Creatinine 0.8 (0.6-1.0) mg/dL Est Cr Clr Drug Dosing 61.35 mL/min Estimated GFR (MDRD) > 60 (>60) Glucose 132 H (74-106) mg/dL Lactic Acid 2.2 H (0.4-2.0) mmol/L Calcium 8.9 (8.5-10.1) mg/dL Magnesium (1.8-2.4) mg/dL Total Bilirubin 0.6 (0.2-1.0) mg/dL AST 19 (15-37) U/L ALT 26 (12-78) U/L Alkaline Phosphatase 55 (46-116) U/L Total Protein 6.8 (6.4-8.2) g/dL Albumin 3.9 (3.4-5.0) g/dL Globulin 2.9 (2.3-3.5) g/dL Albumin/Globulin Ratio 1.3 (1.2-2.2) Urine Color (YELLOW) Urine Appearance (CLEAR) Urine pH (5.0-8.0) Ur Specific Webster (1.008-1.030) Urine Protein (NEGATIVE) mg/dL Urine Glucose (UA) (NEGATIVE) mg/dL Urine Ketones (NEGATIVE) mg/dL Urine Occult Blood (NEGATIVE) Urine Nitrite (NEGATIVE) Urine Bilirubin (NEGATIVE) Urine Urobilinogen (0.2-1.0) EU/dL Ur Leukocyte Esterase (NEGATIVE) Urine RBC (0-5) Urine WBC (0-5) Ur Epithelial Cells Amorphous Sediment Urine Bacteria Urine Mucus Ur Random Sodium (20-110) mmol/L Ur Random Potassium (12-62) mmol/L Urine Opiates Screen (NEGATIVE) Ur Oxycodone Screen (NEGATIVE) Urine Methadone Screen (NEGATIVE) Ur Propoxyphene Screen (NEGATIVE) Ur Barbiturates Screen (NEGATIVE) Ur Tricyclics Screen (NEGATIVE) Ur Phencyclidine Scrn (NEGATIVE) Ur Amphetamine Screen (NEGATIVE) U Methamphetamines Scrn (NEGATIVE) Urine MDMA Screen (NEGATIVE) U Benzodiazepines Scrn (NEGATIVE) U Cocaine Metab Screen (NEGATIVE) U Marijuana (THC) Screen (NEGATIVE) Ethyl Alcohol < 3 mg/dL Lyme Disease IgG Ab (Negative) Lyme Disease IgM Ab (Negative) 04/03/21 04/03/21 04/03/21 Range/Units 01:51 02:30 02:30 WBC (4.5-11.0) K/uL RBC (3.30-5.50) M/uL Hgb (12.0-15.0) g/dL Hct (36.0-48.0) % MCV (80-98) fL MCH (27-31) pg MCHC (32-36) % Plt Count (150-400) K/uL Neut % (Auto) (36-66) % Lymph % (Auto) (24-44) % Bethel % (Auto) (2-6) % Eos % (Auto) (2-4) % Baso % (Auto) (0-1) % PT (9.5-12.0) sec INR (0.80-1.20) APTT (27.0-36.0) sec Sodium (140-148) mmol/L Potassium (3.6-5.2) mmol/L Chloride (100-108) mmol/L Carbon Dioxide (21-32) mmol/L Anion Gap (5.0-14.0) mmol/L BUN (7-18) mg/dL Creatinine (0.6-1.0) mg/dL Est Cr Clr Drug Dosing mL/min Estimated GFR (MDRD) (>60) Glucose (74-106) mg/dL Lactic Acid (0.4-2.0) mmol/L Calcium (8.5-10.1) mg/dL Magnesium (1.8-2.4) mg/dL Total Bilirubin (0.2-1.0) mg/dL AST (15-37) U/L ALT (12-78) U/L Alkaline Phosphatase (46-116) U/L Total Protein (6.4-8.2) g/dL Albumin (3.4-5.0) g/dL Globulin (2.3-3.5) g/dL Albumin/Globulin Ratio (1.2-2.2) Urine Color Yellow (YELLOW) Urine Appearance Clear (CLEAR) Urine pH 6.5 (5.0-8.0) Ur Specific Webster 1.015 (1.008-1.030) Urine Protein Negative (NEGATIVE) mg/dL Urine Glucose (UA) Negative (NEGATIVE) mg/dL Urine Ketones Trace H (NEGATIVE) mg/dL Urine Occult Blood Trace-lysed H (NEGATIVE) Urine Nitrite Negative (NEGATIVE) Urine Bilirubin Negative (NEGATIVE) Urine Urobilinogen 0.2 (0.2-1.0) EU/dL Ur Leukocyte Esterase Negative (NEGATIVE) Urine RBC 0-5 (0-5) Urine WBC 0-5 (0-5) Ur Epithelial Cells Few Amorphous Sediment Not seen Urine Bacteria Few Urine Mucus Not seen Ur Random Sodium (20-110) mmol/L Ur Random Potassium (12-62) mmol/L Urine Opiates Screen Negative (NEGATIVE) Ur Oxycodone Screen Negative (NEGATIVE) Urine Methadone Screen Negative (NEGATIVE) Ur Propoxyphene Screen Negative (NEGATIVE) Ur Barbiturates Screen Negative (NEGATIVE) Ur Tricyclics Screen Negative (NEGATIVE) Ur Phencyclidine Scrn Negative (NEGATIVE) Ur Amphetamine Screen Negative (NEGATIVE) U Methamphetamines Scrn Negative (NEGATIVE) Urine MDMA Screen Negative (NEGATIVE) U Benzodiazepines Scrn Negative (NEGATIVE) U Cocaine Metab Screen Negative (NEGATIVE) U Marijuana (THC) Screen Negative (NEGATIVE) Ethyl Alcohol mg/dL Lyme Disease IgG Ab Negative (Negative) Lyme Disease IgM Ab Negative (Negative) 04/03/21 04/03/21 04/03/21 Range/Units 03:00 03:06 05:00 WBC (4.5-11.0) K/uL RBC (3.30-5.50) M/uL Hgb (12.0-15.0) g/dL Hct (36.0-48.0) % MCV (80-98) fL MCH (27-31) pg MCHC (32-36) % Plt Count (150-400) K/uL Neut % (Auto) (36-66) % Lymph % (Auto) (24-44) % Bethel % (Auto) (2-6) % Eos % (Auto) (2-4) % Baso % (Auto) (0-1) % PT (9.5-12.0) sec INR (0.80-1.20) APTT (27.0-36.0) sec Sodium 136 L (140-148) mmol/L Potassium 3.6 (3.6-5.2) mmol/L Chloride 100 (100-108) mmol/L Carbon Dioxide 27 (21-32) mmol/L Anion Gap 12.6 (5.0-14.0) mmol/L BUN 15 (7-18) mg/dL Creatinine 0.7 (0.6-1.0) mg/dL Est Cr Clr Drug Dosing 73.06 mL/min Estimated GFR (MDRD) > 60 (>60) Glucose 86 (74-106) mg/dL Lactic Acid (0.4-2.0) mmol/L Calcium 8.2 L (8.5-10.1) mg/dL Magnesium (1.8-2.4) mg/dL Total Bilirubin (0.2-1.0) mg/dL AST (15-37) U/L ALT (12-78) U/L Alkaline Phosphatase (46-116) U/L Total Protein (6.4-8.2) g/dL Albumin (3.4-5.0) g/dL Globulin (2.3-3.5) g/dL Albumin/Globulin Ratio (1.2-2.2) Urine Color (YELLOW) Urine Appearance (CLEAR) Urine pH (5.0-8.0) Ur Specific Webster (1.008-1.030) Urine Protein (NEGATIVE) mg/dL Urine Glucose (UA) (NEGATIVE) mg/dL Urine Ketones (NEGATIVE) mg/dL Urine Occult Blood (NEGATIVE) Urine Nitrite (NEGATIVE) Urine Bilirubin (NEGATIVE) Urine Urobilinogen (0.2-1.0) EU/dL Ur Leukocyte Esterase (NEGATIVE) Urine RBC (0-5) Urine WBC (0-5) Ur Epithelial Cells Amorphous Sediment Urine Bacteria Urine Mucus Ur Random Sodium 34 (20-110) mmol/L Ur Random Potassium 14.9 (12-62) mmol/L Urine Opiates Screen (NEGATIVE) Ur Oxycodone Screen (NEGATIVE) Urine Methadone Screen (NEGATIVE) Ur Propoxyphene Screen (NEGATIVE) Ur Barbiturates Screen (NEGATIVE) Ur Tricyclics Screen (NEGATIVE) Ur Phencyclidine Scrn (NEGATIVE) Ur Amphetamine Screen (NEGATIVE) U Methamphetamines Scrn (NEGATIVE) Urine MDMA Screen (NEGATIVE) U Benzodiazepines Scrn (NEGATIVE) U Cocaine Metab Screen (NEGATIVE) U Marijuana (THC) Screen (NEGATIVE) Ethyl Alcohol mg/dL Lyme Disease IgG Ab (Negative) Lyme Disease IgM Ab (Negative) Med Orders - Current: Current Medications Sodium Chloride (Sodium Chloride 3%) 100 mls @ 100 mls/hr IV ASDIRECTED [facility] Last Admin: 04/03/21 09:24 Dose: 100 mls/hr Documented by: - Exam General: Reports: Alert, Oriented, Cooperative, No Acute Distress Lungs: Reports: Clear to Auscultation, Normal Respiratory Effort Cardiovascular: Reports: Regular Rate, Regular Rhythm, No Murmurs GI/Abdominal Exam: Soft, Non-Tender, No Organomegaly, No Distention Extremities: Non-Tender, No Pedal Edema Neurological: Reports: No New Focal Deficit
== END 2021-04-03 13:58 | disposition home or self-care (01) ==
LOC: JP.ED 01:26 → JP.MS 04:04
PROVIDERS: ADMIT Family Medicine; ATTEND Family Medicine
DX: G40.A09 Absence epileptic syndrome, not intractable, without status epilepticus (principal); G89.29 Other chronic pain; M54.9 Dorsalgia, unspecified; M16.0 Bilateral primary osteoarthritis of hip; Z85.820 Personal history of malignant melanoma of skin; Z88.0 Allergy status to penicillin; Z88.8 Allergy status to other drugs, medicaments and biological substances; E87.1 Hypo-osmolality and hyponatremia; R74.02 Elevation of levels of lactic acid dehydrogenase [LDH]; R53.1 Weakness
CPT/HCPCS: 36415; 70450; 80048; 80053; 80305; 80307; 81001; 83605; 83735; 84133; 84300; 85025; 85610; 85730; 86618; 86666; 86753; 99285; G0378; J7131

== ENCOUNTER 2022-12-14 07:15 | Day surgery (SDC) | payer MEDICARE, OTHER ==
[~2022-12-14 07:15] MED LIST changes: +Bupivacaine 0.5% 30 ML SDV ONE; -Bupivacaine 0.5%/EPINEPHrine 1:200,000 50 ML MDV ONE; -methylPREDNISolone Acetate 80 MG/ML SDV ONE
[2022-12-14] MEDS ORDERED: Lactated Ringers 1,000 ML IV SCH (08:00)
[2022-12-14] MEDS ORDERED: Nozin Nasal Sanitizer NASBOTH SCH (08:00)
[2022-12-14] MEDS ORDERED: ceFAZolin 1 GM in Sodium Chloride 0.9% 50 ML IV ONE (08:00)
[2022-12-14] MEDS ORDERED: ceFAZolin 1 GM in Premix Bag 1 BAG IV ONE (08:00)
[2022-12-14 08:25] LABS: ESTIMATED GFR 71 mL/min (>60)
[2022-12-14] MEDS ORDERED: fentaNYL 100 MCG/2 ML SDV ONE (08:56)
[2022-12-14] MEDS ORDERED: Propofol 200 MG/20 ML SDV ONE ×2 (08:56→10:15)
[2022-12-14] MEDS ORDERED: Midazolam 1 MG/ML 2 ML SDV ONE (08:56)
[2022-12-14] MEDS ORDERED: Bupivacaine 0.5% 30 ML SDV ONE (08:57)
[2022-12-14 13:14] VITALS: BP 138/72; PULSE 81
== END 2022-12-14 13:50 | disposition home or self-care (01) ==
LOC: JP.SDS 07:15
PROVIDERS: ATTEND Specialist
DX: M19.012 Primary osteoarthritis, left shoulder (principal); M75.02 Adhesive capsulitis of left shoulder; E78.5 Hyperlipidemia, unspecified; K21.9 Gastro-esophageal reflux disease without esophagitis; K58.9 Irritable bowel syndrome, unspecified; Z79.899 Other long term (current) drug therapy; Z88.0 Allergy status to penicillin
CPT/HCPCS: 29825; 36415; 80053; 85027; A9270; C1713; J2250; J2704; J3010; J3490; J7120